=== PATIENT | male | born 1965 | race Two or more races ===

== ENCOUNTER → 2020-11-17 | Emergency (ER) | payer MEDICAID, OTHER ==
[~2020-11-17] VITALS: Ht 185.4 cm; Wt 89.4 kg
[2020-11-17 11:46] VITALS: BP 142/89
== END | disposition home or self-care (01) ==
LOC: EDBD 11:36 → ER 11:41
DX: R07.89 Other chest pain (principal); R11.2 Nausea with vomiting, unspecified; R06.02 Shortness of breath; F17.210 Nicotine dependence, cigarettes, uncomplicated; I25.10 Atherosclerotic heart disease of native coronary artery without angina pectoris; I25.2 Old myocardial infarction; E78.5 Hyperlipidemia, unspecified
CPT/HCPCS: 93005